=== PATIENT | female | born 1955 | race Caucasian/White ===

== ENCOUNTER 2023-01-12 20:06 | Emergency (ER) | payer OTHER, MEDICARE ==
[2023-01-12 20:26] VITALS: BP 128/67; PULSE 88; RESP 16; TEMP 98; BMI 21.1
[2023-01-12] MEDS ORDERED: PANTOPRAZOLE SODIUM 40 MG VIAL IVPUSH ONE (20:41)
[2023-01-12] MEDS ORDERED: PANTOPRAZOLE SODIUM 40 MG VIAL ONE (20:49)
[2023-01-12 21:10] LABS: HEMATOCRIT 39.6 % (32.4-45.2); HEMOGLOBIN 13.6 G/dL (10.7-15.3); MCHC 34.2 g/dl (32.0-36.0); MEAN CELL VOLUME 87.5 fl (80-96); MEAN PLT VOLUME 7.5 fl (7.5-11.1); PLATELET COUNT 256.1 10^3/uL (134-434); RBC 4.52 10^6/uL (3.60-5.2); RDW 14.9 % (11.6-15.6); WHITE BLOOD COUNT 10.3 10^3/uL (4.0-10.8)
[2023-01-12 21:23] LABS: ALBUMIN 4.3 g/dl (3.4-5.0); BLOOD UREA NITROGEN 10.6 mg/dl (7-18); CALCIUM 9.3 mg/dl (8.5-10.1); CREATININE 0.9 mg/dl (0.6-1.3); POTASSIUM 3.9 mmol/L (3.5-5.1); SGOT/AST 9.5 U/L (15-37); SGPT/ALT 9.4 U/L (7-52); TOT PROT 6.6 g/dl (6.4-8.2)
[2023-01-12 21:25] LABS: PHOSPHOROUS 3.34 (2.5-4.9)
[2023-01-13 03:21] LABS: BILIRUBIN,TOTAL 0.3 mg/dL (0.2-1)
== END 2023-01-12 22:10 | disposition home or self-care (01) ==
LOC: FER 20:06
PROC: 3E033GC Introduction of Other Therapeutic Substance into Peripheral Vein, Percutaneous Approach (ICD-10-PCS; principal; 2023-01-12)
DX: R10.13 Epigastric pain (principal); R19.7 Diarrhea, unspecified; R10.11 Right upper quadrant pain; U07.1 COVID-19
CPT/HCPCS: 36415; 76705-TC; 80053; 82550; 83690; 83735; 84100; 84484; 85027; 87635; 93005; 99285-25

== ENCOUNTER 2023-01-26 10:17 | Emergency (ER) | payer OTHER, MEDICARE ==
[2023-01-26 10:32] VITALS: BP 152/91; PULSE 75; RESP 20; TEMP 97.9; BMI 20.5
== END 2023-01-26 10:54 | disposition home or self-care (01) ==
LOC: FER 10:17
DX: U09.9 Post COVID-19 condition, unspecified (principal); R53.83 Other fatigue; R51.9 Headache, unspecified; R53.1 Weakness; R50.9 Fever, unspecified
CPT/HCPCS: 99282-25